=== PATIENT | male | born 1995 | race Two or more races ===

== ENCOUNTER 2022-01-20 13:59 | Outpatient (CLI) | payer OTHER ==
[2022-01-20 15:01] VITALS: BP 122/77
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
== END 2022-01-20 14:00 | disposition home or self-care (01) ==
LOC: SC 13:59
PROVIDERS: ATTEND Nurse Practitioner Family
DX: R06.83 Snoring (principal); R06.81 Apnea, not elsewhere classified; G47.8 Other sleep disorders; G47.10 Hypersomnia, unspecified; E66.9 Obesity, unspecified; Z68.31 Body mass index [BMI] 31.0-31.9, adult
CPT/HCPCS: 99203; 99212

== ENCOUNTER 2022-02-28 20:32 | Outpatient (CLI) | payer OTHER | END 2022-02-28 20:33 | disposition home or self-care (01) | LOC: SC 20:32 | PROVIDERS: ATTEND Nurse Practitioner Family | DX: R06.83 Snoring (principal); R06.81 Apnea, not elsewhere classified; G47.8 Other sleep disorders; R53.83 Other fatigue; G47.10 Hypersomnia, unspecified | CPT/HCPCS: 95810 ==

== ENCOUNTER 2022-03-23 09:30 | Outpatient (CLI) | payer OTHER ==
[2022-03-23 10:11] VITALS: BP 145/98
--- NOTE | 2022-03-23 10:11 | SLEEP CARE CONSULTATION ---
Information from patient questionnaire entered by Kamran Kirby MA. I have reviewed and concur with the information entered by Kamran Kirby MA. This document represents the service I personally performed and the decisions made by Barrie omalley Caren J, ARNP. History of Present Illness Service Date and Time: 03/23/2022 0930 Initial [place] Sleepiness Scale score: 16 (2021) Current [place] Sleepiness Scale score: 16 (03/2022) Additional HPI information: YANET FORD returns for follow up and results of the recently performed polysomnography. The patient was informed of the following findings: No significant sleep disordered breathing with an average AHI of 1.9 and [place]rest oxygen saturation of 90%. I explained the pathophysiology behind obstructive sleep apnea. Patient does not have sleep apnea and was advised how weight gain could increase the risk of developing sleep apnea in the future. I encouraged the patient to lose weight. Patient has light snoring. Snoring can be reduced by weight loss. Weight loss is best achieved with diet consult. Patient instructed to contact PCP for referral. Snoring can also be treated with an oral appliance from a dentist. Advised to check insurance coverage. In addition, an ENT evaluation can be do to see if other treatment is indicated. Patient counseled not drink alcohol less than 4 hours before bedtime as it can increase snoring and apnea. Patient was cautioned about risks of drowsy driving until sleepiness symptoms resolve. Patient denies drowsy driving. Sleep Study - Results Type of Sleep Study: Polysomnography (F/U POLY, 02/28/22 [facility],) Prior sleep studies: No Polysomnography/Home Sleep Study results: IMPRESSION: The quality of the study is good. The patient had normal sleep efficiency. The sleep architecture was normal as well. Respiratory monitoring showed no significant sleep disordered breathing (AHI = 1.9) or hypoxia ([place]rest oxygen saturation of 90%). The patient slept mostly in supine position (supine AHI = 2.2; nonsupine = 0.68). Snore was light in intensity. There was no significant periodic leg movement of sleep. Cardiac rhythm was normal sinus rhythm without significant arrhythmia. No abnormal behavior (parasomnia) observed during the night. Allergies and Home Medications Known drug allergies: No Drug allergies reviewed: Yes Home medication list reviewed: Yes (no changes) Review of Systems Review of systems same as previous: Yes (no changes) Physical Exam Vital signs obtained and entered by: Jordan KIRBY CMA AAMA, Blood Pressure: 145/98 (RESP 14, PULSE 54, RIGHT,) Cuff size: wrist Heart Rate: 52 O2 Saturation: 98 (CLOTH MASK) Height: 5 ft 10 in Weight: 208 lb (CLOTHES) Body Mass Index: 29.8 BMI Classification: Overweight Impression and Plan Snoring but no significant sleep disordered breathing. Patient advised that often weight loss will reduce snoring as well as apnea risk. An oral appliance can also be used for snoring. This would require a dental consultation. Patient cautioned not to use other online appliances as can cause bite issues. A list of accredited dentists in [facility] and one local dentist who makes oral appliances is available in office. Patient is advised to check if insurance will cover. An ENT consult can also be helpful to determine if any other treatment is an option. AAS pamphlet How to Sleep Better was given and explained to patient. * Attempt to lose weight * Avoid alcohol consumption near bedtime * The patient is cautioned about driving until sleepiness is completely resolved. * Return as needed for follow up. Counseling Topics: Weight loss health impact Visit Type: In Office Time Spent with Patient (minutes): 10 Provider Statement: I spent 100% of the Face to Face Visit with the patient with greater than 50% spent counseling the patient and coordination of care.
== END 2022-03-23 09:31 | disposition home or self-care (01) ==
LOC: SC 09:30
PROVIDERS: ATTEND Nurse Practitioner Family
DX: R06.83 Snoring (principal)
CPT/HCPCS: 99212